=== PATIENT | male | born 1985 | race African-American/Black ===

== ENCOUNTER 2021-01-23 20:06 | Emergency (ER) | payer OTHER ==
[~2021-01-23] VITALS: Ht 182.9 cm; Wt 101.2 kg
[2021-01-23 20:12] VITALS: BP 112/83
--- NOTE | 2021-01-23 21:28 | NUR ---
PT PRESENTS TO THE ER FOR RIGHT SIDED LOWER BACK PAIN RADIATING TO HIS RIGHT LEG AND FOR "BLUE BALLS", PT STATES HE THINKS HE HAS SCIATICA PAIN BUT IS NOT SURE, NAD AT THIS TIME, ALL NEEDS IN REACH, CALL LIGHT IN REACH
[2021-01-23] MEDS ORDERED: KETOROLAC 30 MG/1 ML IM ONE (21:30)
[2021-01-23] MEDS ORDERED: KETOROLAC 30 MG/1 ML ONE (21:38)
[2021-01-23] MEDS ORDERED: IBUPROFEN 600 MG TABLET ONE (22:20)
--- NOTE | 2021-01-23 22:25 | NUR ---
PT TALKING ON CELLPHONE THE WHOLE TIME, PT DIDNT EVEN STOP TALKING WHILE THIS RN WAS TRYING TO GIVE HIM DISCHARGE INSTRUCTIONS, SCRIPTS GIVEN TO PT, PT NAD
--- NOTE | 2021-01-23 22:26 | NUR ---
PT REFUSED IM INJECTION BECAUSE, "THATS TOO CRAZY FOR ME"
== END 2021-01-23 22:27 | disposition home or self-care (01) ==
LOC: ED 20:45
DX: S39.012A Strain of muscle, fascia and tendon of lower back, initial encounter (principal); F17.210 Nicotine dependence, cigarettes, uncomplicated; X58.XXXA Exposure to other specified factors, initial encounter; Y93.89 Activity, other specified; Y92.89 Other specified places as the place of occurrence of the external cause; Y99.8 Other external cause status
CPT/HCPCS: 96372; 99283; 99406; J1885